=== PATIENT | male | born 1950 | race Caucasian/White ===

== ENCOUNTER 2017-01-28 09:55 | Inpatient (IN) | payer BC, MEDICARE, OTHER ==
[2017-01-28] MEDS ORDERED: NS 0.9% 1000 ML* 1,000 ML IV ONE (10:17)
[2017-01-28] MEDS ORDERED: HYDROmorphone* 1 MG/ML 1 ML SYR IV ONE (10:17)
[2017-01-28] MEDS ORDERED: Ondansetron INJ* 2 MG/ML VIAL IV ONE (10:17)
[2017-01-28 10:41] LABS: Hematocrit 43 % (42-52); Hemoglobin 14.5 g/dl (14.0-18.0); Mean Corpuscular HGB Conc 34 g/dl (31-36); Mean Corpuscular Hemoglobin 35 pg (27-31); Mean Corpuscular Volume 104 fL (80-94); Mean Platelet Volume 7 um3 (7.4-10.4); Red Cell Distribution Width 14 % (10.5-15); White Blood Count 8.2 10^3/ul (3.5-10.8)
[2017-01-28 10:58] LABS: Albumin 4.2 g/dL (3.2-5.2); BUN/Creatinine Ratio 21.3 (8-20); Calcium 8.8 mg/dL (8.6-10.3); EGFR Non-African American 96.4 (>60); Globulin 2.4 g/dL (2-4); Total Bilirubin 0.8 mg/dL (0.2-1.0); Total Protein 6.6 g/dL (6.4-8.9)
--- NOTE | 2017-01-28 11:00 | RAD ---
INDICATION: Left knee injury COMPARISON: None TECHNIQUE: 2 views were obtained. FINDINGS: There is a comminuted and displaced lateral tibial plateau fracture. There is mild valgus deformity. There is a joint effusion with a fat-fluid level. There are postoperative changes about the left ankle. IMPRESSION: DISTRACTED AND COMMINUTED LATERAL TIBIAL PLATEAU FRACTURE WITH LIPOHEMARTHROSIS
[2017-01-28] MEDS ORDERED: Iohexol 350* (CONTRAST) 500 ML MDV IV ONE (11:14)
--- NOTE | 2017-01-28 12:30 | RAD ---
INDICATION: Tibial plateau fracture. Evaluate for popliteal artery injury COMPARISON: Left lower extremity January 28, 2017 TECHNIQUE: Following administration of 100 mL of Omnipaque 350, coronal and axial imaging of the lower extremity was performed from the mid thigh to the mid diaphysis of the tibia. Coronal and sagittal reconstructed images were acquired. 3-D volume rendered images were obtained. FINDINGS: The distal superficial femoral artery, popliteal artery, tibioperoneal trunk, and proximal tibial vessels to the mid leg are widely patent. There are no findings of dissection or aneurysm. The CT angiogram of the visualized portion of lower extremity is normal. There is a comminuted, distracted, and mildly depressed lateral tibial plateau fracture. The dominant fracture fragment is distracted laterally approximately 2 cm. On oblique component of the fracture extends the proximal metadiaphysis along the lateral cortical margin. There is a joint effusion with a fat-fluid level. There are no additional significant findings. IMPRESSION: 1. NORMAL CT ANGIOGRAM. 2. TIBIAL PLATEAU FRACTURE DESCRIBED WITH LIPOHEMARTHROSIS
[2017-01-28] MEDS ORDERED: ceFAZolin 2 GM PREMIX (*) 50 ML IVPB ONE (14:44)
[2017-01-28] MEDS ORDERED: fentaNYL* 50 MCG/ML 2 ML VIAL (100 MCG VIAL) ONE ×3 (15:40→18:39)
[2017-01-28] MEDS ORDERED: Midazolam* 1 MG/ML 2 ML VIAL (2 MG) ONE (15:42)
[2017-01-28] MEDS ORDERED: KETAMINE HCL* 50 MG/ML 10 ML VIAL ONE (16:07)
[2017-01-28] MEDS ORDERED: Lidocaine 2% PF * 5 ML VIAL ONE (16:15)
[2017-01-28] MEDS ORDERED: Ondansetron INJ* 2 MG/ML VIAL ONE (16:42)
[2017-01-28] MEDS ORDERED: Ketorolac INJ* 30 MG/ML 1 ML VIAL ONE (16:42)
[2017-01-28] MEDS ORDERED: DiMENhydriNATE IV* 50 MG/ML VIAL IV PUSH PRN (16:58)
[2017-01-28] MEDS ORDERED: fentaNYL* 50 MCG/ML 2 ML VIAL (100 MCG VIAL) IV PRN (16:58)
[2017-01-28] MEDS ORDERED: HYDROmorphone* 1 MG/ML 1 ML SYR IV PRN (16:58)
[2017-01-28] MEDS ORDERED: Ondansetron INJ* 2 MG/ML VIAL IV PRN (17:48)
[2017-01-28] MEDS ORDERED: diPHENhydraMINE IV* 50 MG/ML 1 ml VIAL (BENADRYL) IV PRN (17:48)
[2017-01-28] MEDS ORDERED: Acetaminophen TAB* 325 MG PO PRN (17:48)
[2017-01-28] MEDS ORDERED: oxyCODONE/Acetamin 5/325 MG* TAB PO PRN (17:48)
[2017-01-28] MEDS ORDERED: Morphine INJ* 2 MG/ML 1 ML SYRINGE IV PRN (17:48)
--- NOTE | 2017-01-28 18:08 | ED ---
Lane Good Angela, scribed for Teo Crowell MD on 01/28/17 at 1038 . Lower Extremity - HPI Summary HPI Summary: This pt is a 66 y/o male presenting to [facility] c/o left leg pain s/p injury today. Pt reports he fell into a ditch while at work, landing on his feet first and injuring his left leg. He endorses left knee swelling and pain. His pain aggravated by ambulation and movement, and alleviated by nothing. Pt denies any other injuries, ankle pain, LOC, headache, back pain, upper extremity pain, fever, chills. - History of Current Complaint Chief Complaint: EDExtremityLower Stated Complaint: LT KNEE INJURY Time Seen by Provider: 01/28/17 10:16 Hx Obtained From: Patient Mechanism Of Injury: Fall From Height Of: - fell feet first into a ditch Onset of Pain: Immediate - s/p fall Pain Intensity: 8 Pain Scale Used: 0-10 Numeric Timing: Constant Location: Is Discrete @ - left knee Aggravating Factor(s): Ambulation, Movement Alleviating Factor(s): Nothing - Allergies/Home Medications Allergies/Adverse Reactions: Allergies Allergy/AdvReac Type Severity Reaction Status Date / Time No Known Allergies Allergy Verified 06/04/16 12:28 Home Medications: Home Medications NK [No Home Medications Reported] 01/28/17 [History Confirmed 01/28/17] PMH/Surg Hx/FS Hx/Imm Hx Endocrine/Hematology History: Denies: Hx Diabetes Cardiovascular History: Denies: Hx Hypertension - Surgical History Surgery Procedure, Year, and Place: Tonsillectomy, adenoidectomy Infectious Disease History: No Infectious Disease History: Reports: Traveled Outside the [place] in Last 30 Days - tang - Family History Known Family History: Positive: Cardiac Disease - [place], Other - Mother - colon cancer - Social History Alcohol Use: Occasionally Substance Use Type: Reports: None Smoking Status (MU): Former Smoker Review of Systems Constitutional: Other - NEGATIVE: LOC Negative: Fever, Chills Negative: Abdominal Pain Positive: Decreased ROM - left knee, Other - POSITIVE: Left knee pain and swelling. NEGATIVE: back pain Negative: Headache All Other Systems Reviewed And Are Negative: Yes Physical Exam Triage Information Reviewed: Yes Vital Signs On Initial Exam: Initial Vitals BP 178/89 01/28/17 10:06 Vital Signs Reviewed: Yes Appearance: Positive: Well-Appearing Skin: Positive: Warm, Skin Color Reflects Adequate Perfusion Head/Face: Positive: Normal Head/Face Inspection Eyes: Positive: Normal ENT: Positive: Normal ENT inspection Neck: Positive: Supple, Nontender Cardiovascular: Positive: RRR Musculoskeletal: Positive: Other - Left knee swelling. Neurological: Positive: Normal Psychiatric: Positive: Normal, Affect/Mood Appropriate - [place] Coma Scale Coma Scale Total: 15 Diagnostics - Vital Signs Vital Signs Temp Pulse Resp BP Pulse Ox 01/28/17 10:08 97.4 F 73 18 178/89 99 01/28/17 10:07 70 99 01/28/17 10:06 178/ - Laboratory Lab Results: Lab Results 01/28/17 01/28/17 Range/Units 10:30 10:30 WBC 8.2 (3.5-10.8) 10^3/ul RBC 4.10 (4.0-5.4) 10^6/ul Hgb 14.5 (14.0-18.0) g/dl Hct 43 (42-52) % MCV 104 H (80-94) fL MCH 35 H (27-31) pg MCHC 34 (31-36) g/dl RDW 14 (10.5-15) % Plt Count 311 (150-450) 10^3/ul MPV 7 L (7.4-10.4) um3 Neut % (Auto) 62.3 (38-83) % Lymph % (Auto) 28.7 (25-47) % [place] % (Auto) 8.0 (1-9) % Eos % (Auto) 0.3 (0-6) % Baso % (Auto) 0.7 (0-2) % Absolute Neuts (auto) 5.1 (1.5-7.7) 10^3/ul Absolute Lymphs (auto) 2.4 (1.0-4.8) 10^3/ul Absolute Monos (auto) 0.7 (0-0.8) 10^3/ul Absolute Eos (auto) 0 (0-0.6) 10^3/ul Absolute Basos (auto) 0.1 (0-0.2) 10^3/ul Absolute Nucleated RBC 0 10^3/ul Nucleated RBC % 0 Sodium 137 (133-145) mmol/L Potassium 4.0 (3.5-5.0) mmol/L Chloride 105 (101-111) mmol/L Carbon Dioxide 23 (22-32) mmol/L Anion Gap 9 (2-11) mmol/L BUN 17 (6-24) mg/dL Creatinine 0.80 (0.67-1.17) mg/dL Est GFR ( Amer) 124.0 (>60) Est GFR (Non-Af Amer) 96.4 (>60) BUN/Creatinine Ratio 21.3 H (8-20) Glucose 113 H (70-100) mg/dL Calcium 8.8 (8.6-10.3) mg/dL Total Bilirubin 0.80 (0.2-1.0) mg/dL AST 21 (13-39) U/L ALT 21 (7-52) U/L Alkaline Phosphatase 78 (34-104) U/L Total Protein 6.6 (6.4-8.9) g/dL Albumin 4.2 (3.2-5.2) g/dL Globulin 2.4 (2-4) g/dL Albumin/Globulin Ratio 1.8 (1-3) Result Diagrams: 01/28/17 10:30 01/28/17 10:30 Lab Statement: Any lab studies that have been ordered have been reviewed, and results considered in the medical decision making process. - Radiology Left lower extremity XR Xray Interpretation: Positive (See Comments) - IMPRESSION: Distracted and comminuted lateral tibial plateau fracture with lipohemarthrosis. ED physician has reviewed this radiology report and agrees. Radiology Interpretation Completed By: Radiologist - CT CTA Lower Extremity bilateral CT Interpretation: Positive (See Comments) - IMPRESSION: 1. Normal CT angiogram. 2. Tibial plateau fracture as described with lipohemarthrosis. ED physician has reviewed this radiology report and agrees. CT Interpretation Completed By: Radiologist Lower Extremity Course/Dx - Course Course Of Treatment: Mr. Scanlon presented after falling into a ditch and injuring his left leg with obvious valgus deformity at the knee. We got his boot off and his DP was only obtainable with doppler. His cap refill was 5-6 seconds. X-ray showed a significantly displaced tibial plateau fracture laterally, an avulsion fracture of the femur medially and no fracture at the ankle. A CTA was obtained and showed patent vessels through the knee. He was taken to the OR by the Orthopedic service. - Diagnoses Provider Diagnoses: Tibial plateau fracture, left Discharge - Discharge Plan Condition: Stable Disposition: ADMITTED TO [facility] The documentation as recorded by the Lane brown Angela accurately reflects the service I personally performed and the decisions made by me, Teo Crowell MD.
--- NOTE | 2017-01-28 18:16 | RAD ---
INDICATION: Left knee closed reduction, left knee trauma COMPARISONS: January 28, 2017 TECHNIQUE: Fluoroscopy was provided for a surgical procedure. Total fluoroscopy time is: 1 minute, 12.6 seconds FINDINGS: Spot images demonstrate internal fixation of the left lower extremity. IMPRESSION: FLUOROSCOPY WAS PROVIDED FOR A SURGICAL PROCEDURE CPT II Codes: 6045F
[2017-01-28] MEDS: Docusate CAP* 100 MG PO SCH (20:33)
[2017-01-28] MEDS: oxyCODONE TAB* 5 MG TAB PO PRN (20:33)
[2017-01-29] MEDS: ceFAZolin 1 GM VIAL(*) 1 GM in NS 0.9% 50 ML* 50 ML IVPB SCH ×3 (00:10→16:49)
[2017-01-29] MEDS: oxyCODONE TAB* 5 MG TAB PO PRN ×3 (00:28→09:02)
[2017-01-29] MEDS: Docusate CAP* 100 MG PO SCH ×2 (08:11→20:12)
[2017-01-29] MEDS: Enoxaparin(*) 40 MG/0.4 ML SYR SUBCUT SCH (08:14)
--- NOTE | 2017-01-29 09:44 | PN ---
Progress Note - Progress Note Date of Service: 01/29/17 SOAP: Subjective: resting comfortably with minimal complaints of pain Objective: Vital Signs Temp Pulse Resp BP Pulse Ox 99.0 F 88 16 155/77 99 01/29/17 07:28 01/29/17 07:28 01/29/17 09:02 01/29/17 07:28 01/29/17 08:00 Laboratory Last Values WBC 8.2 10^3/ul (3.5-10.8) 01/28/17 10:30 RBC 4.10 10^6/ul (4.0-5.4) 01/28/17 10:30 Hgb 14.5 g/dl (14.0-18.0) 01/28/17 10:30 Hct 43 % (42-52) 01/28/17 10:30 MCV 104 fL (80-94) H 01/28/17 10:30 MCH 35 pg (27-31) H 01/28/17 10:30 MCHC 34 g/dl (31-36) 01/28/17 10:30 RDW 14 % (10.5-15) 01/28/17 10:30 Plt Count 311 10^3/ul (150-450) 01/28/17 10:30 MPV 7 um3 (7.4-10.4) L 01/28/17 10:30 Neut % (Auto) 62.3 % (38-83) 01/28/17 10:30 Lymph % (Auto) 28.7 % (25-47) 01/28/17 10:30 [place] % (Auto) 8.0 % (1-9) 01/28/17 10:30 Eos % (Auto) 0.3 % (0-6) 01/28/17 10:30 Baso % (Auto) 0.7 % (0-2) 01/28/17 10:30 Absolute Neuts (auto) 5.1 10^3/ul (1.5-7.7) 01/28/17 10:30 Absolute Lymphs (auto) 2.4 10^3/ul (1.0-4.8) 01/28/17 10:30 Absolute Monos (auto) 0.7 10^3/ul (0-0.8) 01/28/17 10:30 Absolute Eos (auto) 0 10^3/ul (0-0.6) 01/28/17 10:30 Absolute Basos (auto) 0.1 10^3/ul (0-0.2) 01/28/17 10:30 Absolute Nucleated RBC 0 10^3/ul 01/28/17 10:30 Nucleated RBC % 0 01/28/17 10:30 Sodium 137 mmol/L (133-145) 01/28/17 10:30 Potassium 4.0 mmol/L (3.5-5.0) 01/28/17 10:30 Chloride 105 mmol/L (101-111) 01/28/17 10:30 Carbon Dioxide 23 mmol/L (22-32) 01/28/17 10:30 Anion Gap 9 mmol/L (2-11) 01/28/17 10:30 BUN 17 mg/dL (6-24) 01/28/17 10:30 Creatinine 0.80 mg/dL (0.67-1.17) 01/28/17 10:30 Est GFR ( Amer) 124.0 (>60) 01/28/17 10:30 Est GFR (Non-Af Amer) 96.4 (>60) 01/28/17 10:30 BUN/Creatinine Ratio 21.3 (8-20) H 01/28/17 10:30 Glucose 113 mg/dL (70-100) H 01/28/17 10:30 Calcium 8.8 mg/dL (8.6-10.3) 01/28/17 10:30 Total Bilirubin 0.80 mg/dL (0.2-1.0) 01/28/17 10:30 AST 21 U/L (13-39) 01/28/17 10:30 ALT 21 U/L (7-52) 01/28/17 10:30 Alkaline Phosphatase 78 U/L (34-104) 01/28/17 10:30 Total Protein 6.6 g/dL (6.4-8.9) 01/28/17 10:30 Albumin 4.2 g/dL (3.2-5.2) 01/28/17 10:30 Globulin 2.4 g/dL (2-4) 01/28/17 10:30 Albumin/Globulin Ratio 1.8 (1-3) 01/28/17 10:30 incision: c/d/i PE: NVI Assessment: POD#1 S/P ex fix application LLE for tibial plateau fracture Plan: 1) PT/OT- NWB LLE 2) Ancef x 3 doses 3) Lovenox for DVT prophyalxis 4) Home today after third dose of Ancef and OT evaluation <Ela Browning - Last Filed: 01/29/17 09:41> - Progress Note SOAP: Subjective: Patient failed OT eval. Unable to get out of bed without significant pain. So will stay until at least tomorrow. Objective: NAD. Comfortable. LLE: - Pins in place - Construct tight without loosening - NVID - Significant swelling left knee, no wrinkling laterally Assessment: POD 1, HD 2 ex-fix left displaced lateral tibial plateau fracture Plan: - Pain control with PO/IV narcotics - Ex-fix in place - NWB LLE - OOB as wilmer. OT to see again tomorrow - Lovenox 40 mg SQ daily - Ancef doses (up to max of 3) were being given, primarily because of the patient's ankle hardware in the vicinity of distal pins - Discussed with family and patient at length his diagnosis, our plan before, during, and after ORIF surgery and prognosis. They asked excellent questions such as the possibility of treatment with a TKA or the future need for a TKA. - Dispo depends on the patient's comfort getting out of bed with OT - Pin care by nursing - Elevation and icing knee. Amount of swelling will determine timing of ORIF surgery. - I anticipate surgery either February 04 or <Lavelle Guerin - Last Filed: 01/29/17 13:44>
[2017-01-29] MEDS: oxyCODONE/Acetamin 5/325 MG* TAB PO PRN ×3 (12:18→23:11)
--- NOTE | 2017-01-30 03:19 | OP ---
OPERATIVE REPORT: DATE OF OPERATION: 01/28/17 DATE OF : 48 SURGEON: Lavelle Guerin MD MARKETING OPERATIONS MANAGER: CORRINA Waldron A physician document control assistant was required throughout the duration of the procedure for retraction and manip ulation of the body as well as instrumentation. ANESTHESIOLOGIST: Dr. Devante Castro ANESTHESIA: General anesthesia. PRE-OP DIAGNOSIS: Left knee lateral tibial plateau fracture, displaced. POST-OP DIAGNOSIS: Left knee lateral tibial plateau fracture, displaced. OPERATIVE PROCEDURE: External fixation, left knee for lateral tibial plateau fracture, displaced. ANTIBIOTICS: Ancef 2 g IV. IV FLUIDS: 600 cc Crystalloid. COMPLICATIONS: None. ESTIMATED BLOOD LOSS: Minimal. SPECIMEN: None. IMPLANTS: Synthes large external fixator placement; 2 pins in femur, left, 2 pins in left tibia; an d spanning rods, 2 anteromedially and 2 anterolaterally. TOURNIQUET TIME: None. 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 m. on the day of surgery. See history and physical for full details. The patient was seen in the e mergency department. A colleague of levar was on-call and asked me to see the patient. The patient had a Schatzker II displaced lateral tibial plateau fracture with depression. This was evident by C T scan and x-ray. The patient was very uncomfortable in the emergency department. The first plan was for possible ORIF. The 3.5 mm plates for the procedure were not available until the following morning. Due to the patient's already significant level of swelling, soft tissue abou t the left knee, the decision was made to place an external fixator for a provisional management, al low the soft tissue to subside and then eventually, in 1 to 2-1/2 weeks, perform open reduction inte rnal fixation. Of note, the patient had a prior history of left ankle open reduction internal fixation and had some hardware placed in the medial and lateral malleolus, so I wanted to steer clear of that hardware wh ile placing my tibial pins. I also wanted to make sure to place my tibial pins distal enough to shena id being anywhere near the site of future lateral plate for the open reduction internal fixation pro cedure. I discussed with patient and his family, benefits, risks and potential complications of the procedur e. These include bleeding, nerve injury, infection, blood vessel injury, knee arthritis, knee stiff ness, knee pain, need for open reduction internal fixation, knee arthritis, future need for total kn ee arthroplasty. DESCRIPTION OF PROCEDURE: The patient signed surgical consent in preoperative holding. Operative e xtremities marked in preoperative holding. The patient was taken back to the operating room and savita ariella supine on a radiolucent table. General anesthesia was applied. Left lower extremity was examined and noted to have some significant valgus deformity to it. Bone f oam was placed under the left lower extremity and blanket bumps under the left hemipelvis. Nonsteri le U-drape was placed about the proximal most aspect of the left lower extremity near the groin. I did not place a nonsterile tourniquet, but decided that I could place a sterile tourniquet as needed during the procedure. The left lower extremity was prepped with chlorhexidine about the foot and ChloraPrep throughout the rest of the lower extremity. Draping was performed. Surgical time-out was performed. A C-arm was brought in. I made multiple arrieta with a skin pen. I marked 11 cm proximal to the prox imal pole patella and knee extension. This is a comfortable distance to the description of the supr apatellar pouch extending to 8.5 cm proximal. I determined the mid point of the femur and confirmed that with a freer metallic instrument using C-arm. I then incised skin at this point, I spread wit h the hemostat down to bone. I placed a triple sleeve and I drilled through it 3.5 mm drill bit. I confirmed the position of my drill bit with C-arm. I adjusted it once to make it more nicely perpe ndicular to bone. I then placed a pin by hand into the bone. C-arm confirmed that it was bicortica l, 1 thread passed the second cortex. I then used a sleeve guide to place a second more proximal pi n through the femur, using the same technique again. I then directed my attention towards the tibia. I found a zone of the lower leg, proximal to the pl ate and screws at the ankle fixation and distal to where I believed a plate would extend during his upcoming open reduction internal fixation case. Using similar technique to above, I made a longitud inal skin incision, spread to bone, at this time over the anterior part of the anteromedial aspect, side of the tibia. A drill bit of 3.5 meter drill and then placed by hand 2 pins. I then constructed my external fixator. The pins were connected by pin joiners on either side of th e knee. I then created a spanning construct both anteromedial and anterolateral with one long denise o n either end of the pin construct from the tibia and the femur and then a pin-to-pin connector just distal to the knee. I tightened all bolts except for one between the distal construct and its bars. I then used C-arm imaging to evaluate the fracture. There was some mild amount of valgus and displa cement at the fracture site. I then performed some reduction. More specifically this was a small am ount of varus force, but mostly just traction. This appeared to reduce slightly the fracture. There was still some gaping at the fracture site. I tried with my hand and with a mallet to reduce this and with varying amounts of varus and valgus stress, but this would not further reduce. That t ype of improve reduction will require plate and screws and open technique. After obtaining the best reduction available, I obtained final images with the C- arm. I then placed Xeroform around each one of the pin sites. I followed that with a 4 x 4 soaked in Bet adine around each one. Of note, there was 1 additional stab skin incision, just proximal to the oth er 2 about the lower leg. This was placed before I decided to go more distal to avoid the possible overlap with possible future plate site. I closed that stab incision with 1 figure-of-8 stitch usin g nylon 4-0 suture. Next, I placed a small amount of Webril about the proximal lower leg to reduce swelling or minimize future swelling. I then placed an Brad bandage, 6-inch about much of the printing sales representative al fixator frame for cosmetic benefit. There was almost zero bleeding through the procedure, perhaps 1 cc or 2 cc of blood. Hemostasis onc e was obtained on one of the stab incisions with Bovie electrocautery for a moment. The patient was awakened and extubated and brought to the PACU. DISPOSITION: At the conclusion of the procedure, in the PACU, we spoke with both Physical Therapy a nd Occupational Therapy to attempt to get the patient cleared for discharge home. However, the benjamin ent could not be seen at that late hour. We therefore admitted the patient for pain control as well as for functional and occupational therapy prior to discharge home. The patient will be admitted u ntil he is safe for discharge to a rehab facility or home. The patient will then be seen in followu p by me and I will monitor his soft tissue swelling to the site when an open reduction internal fixa tion can be performed. The patient will be anticoagulated with Lovenox 40 mg subcu daily for DVT pr ophylaxis. He will receive narcotics for pain control. Instead of just 1 dose of Ancef perioperati vely, I placed him on Ancef 1 g q.8 hours for up to 24 hours or until he leaves if that is sooner th an 24 hours, just put some added protection given the additional hardware already placed in that lef t lower extremity, specifically about the ankle. [id number]/[facility] #: [id number]
--- NOTE | 2017-01-30 07:32 | PN ---
Progress Note - Progress Note Date of Service: 01/30/17 SOAP: Subjective: resting comfortably, continued complaints of severe left leg pain Objective: Vital Signs Temp Pulse Resp BP Pulse Ox 98.5 F 100 16 129/71 98 01/30/17 03:55 01/30/17 03:55 01/30/17 03:55 01/30/17 03:55 01/30/17 03:55 Laboratory Last Values WBC 8.2 10^3/ul (3.5-10.8) 01/28/17 10:30 RBC 4.10 10^6/ul (4.0-5.4) 01/28/17 10:30 Hgb 14.5 g/dl (14.0-18.0) 01/28/17 10:30 Hct 43 % (42-52) 01/28/17 10:30 MCV 104 fL (80-94) H 01/28/17 10:30 MCH 35 pg (27-31) H 01/28/17 10:30 MCHC 34 g/dl (31-36) 01/28/17 10:30 RDW 14 % (10.5-15) 01/28/17 10:30 Plt Count 311 10^3/ul (150-450) 01/28/17 10:30 MPV 7 um3 (7.4-10.4) L 01/28/17 10:30 Neut % (Auto) 62.3 % (38-83) 01/28/17 10:30 Lymph % (Auto) 28.7 % (25-47) 01/28/17 10:30 [place] % (Auto) 8.0 % (1-9) 01/28/17 10:30 Eos % (Auto) 0.3 % (0-6) 01/28/17 10:30 Baso % (Auto) 0.7 % (0-2) 01/28/17 10:30 Absolute Neuts (auto) 5.1 10^3/ul (1.5-7.7) 01/28/17 10:30 Absolute Lymphs (auto) 2.4 10^3/ul (1.0-4.8) 01/28/17 10:30 Absolute Monos (auto) 0.7 10^3/ul (0-0.8) 01/28/17 10:30 Absolute Eos (auto) 0 10^3/ul (0-0.6) 01/28/17 10:30 Absolute Basos (auto) 0.1 10^3/ul (0-0.2) 01/28/17 10:30 Absolute Nucleated RBC 0 10^3/ul 01/28/17 10:30 Nucleated RBC % 0 01/28/17 10:30 Sodium 137 mmol/L (133-145) 01/28/17 10:30 Potassium 4.0 mmol/L (3.5-5.0) 01/28/17 10:30 Chloride 105 mmol/L (101-111) 01/28/17 10:30 Carbon Dioxide 23 mmol/L (22-32) 01/28/17 10:30 Anion Gap 9 mmol/L (2-11) 01/28/17 10:30 BUN 17 mg/dL (6-24) 01/28/17 10:30 Creatinine 0.80 mg/dL (0.67-1.17) 01/28/17 10:30 Est GFR ( Amer) 124.0 (>60) 01/28/17 10:30 Est GFR (Non-Af Amer) 96.4 (>60) 01/28/17 10:30 BUN/Creatinine Ratio 21.3 (8-20) H 01/28/17 10:30 Glucose 113 mg/dL (70-100) H 01/28/17 10:30 Calcium 8.8 mg/dL (8.6-10.3) 01/28/17 10:30 Total Bilirubin 0.80 mg/dL (0.2-1.0) 01/28/17 10:30 AST 21 U/L (13-39) 01/28/17 10:30 ALT 21 U/L (7-52) 01/28/17 10:30 Alkaline Phosphatase 78 U/L (34-104) 01/28/17 10:30 Total Protein 6.6 g/dL (6.4-8.9) 01/28/17 10:30 Albumin 4.2 g/dL (3.2-5.2) 01/28/17 10:30 Globulin 2.4 g/dL (2-4) 01/28/17 10:30 Albumin/Globulin Ratio 1.8 (1-3) 01/28/17 10:30 incision: c/d PE: NVI Assessment: POD#2 Ex Fix application left lower extremity for a tibial plateau fracture Plan: 1) PT/OT- NWB LLE 2) Lovenox for DVT prophylaxis 3) continue current pain regimen 4) likely home tomorrow
[2017-01-30] MEDS: Docusate CAP* 100 MG PO SCH ×2 (08:54→20:17)
[2017-01-30] MEDS: Enoxaparin(*) 40 MG/0.4 ML SYR SUBCUT SCH (08:54)
[2017-01-30] MEDS: oxyCODONE/Acetamin 5/325 MG* TAB PO PRN ×3 (10:18→21:38)
--- NOTE | 2017-01-31 02:49 | CONS ---
CC: Dr. Guerin; Dr. Harris* CONSULTATION REPORT: DATE OF CONSULT: 01/30/17 REFERRING PHYSICIAN: Dr. Guerin. PRIMARY CARE PROVIDER: None. Used to be Dr. Harris; but, as per the patient, Dr. Harris retired. REASON FOR CONSULT: Preoperative clearance. CHIEF COMPLAINT: Left leg pain. HISTORY OF PRESENT ILLNESS: Femi Scanlon is a 66-year-old male [place] with no significant past medical history, who presented to the hospital originally on after he fell in a ditch and sustained tibial plateau fracture with hemarthrosis. The patient was admitted to the surgical service and Dr. Guerin performed external fixation of the left knee and lateral tibia plateau fracture on 01/28/17. Postoperatively, the patient had been doing okay, but they are plans for another surgery and removal of the external fixator. Dr. Guerin was asked to see the patient in consult for surgical clearance. PAST MEDICAL HISTORY: History of left ankle ORIF several years ago. MEDICATIONS: None. ALLERGIES: No known drug allergies. FAMILY HISTORY: Positive for mother with ovarian cancer and colon cancer, who in her 70s and father with history of prostate cancer, who in his 80s. Brother with history of heart valve replacement. SOCIAL HISTORY: The patient smoked for 10 years total, quit in 1994. He drinks 2 alcoholic beverages in night and it is a hard liquor. He denies any drug use. He lives with his daughter, who would be his surrogate. Her name is Elizabeth Scanlon, phone number [phone]. REVIEW OF SYSTEMS: Please see history of present illness. The patient stated that the pain from the external fixator is "not so bad." He denies any problems with shortness of breath or chest pain. Prior to the surgery, he has had no problems with ambulation and no shortness of breath with exertion or chest pain with exertion. He had been healthy all his life. All the remaining 14 systems were reviewed with the patient and were otherwise negative. Evaluation on the day of admission during his original surgery on 01/28/17, he has had no complications. PHYSICAL EXAM: Blood pressure 135/75, heart rate of 89 and regular, respiratory rate 16, oxygen saturation 98% on room air, and temperature of 98.2. General: This is a pleasant 66-year-old male, who is in no acute distress. Alert, awake, and oriented x3. HEENT: Head: Atraumatic, normocephalic. Eyes: Pupils equal, reactive to light and accommodation. Oropharynx clear. Mucosa moist. Neck: Supple. No JVD, no bruit bilaterally. Cardiovascular: Regular rate and rhythm. No murmur. Respiratory: Clear to auscultation bilaterally. Abdomen: Soft, nontender. Bowel sounds present in all 4 quadrants. Extremities: There is left ankle edema, nonpitting. Pulses are +2 bilaterally. There is no clubbing or cyanosis. Left lower extremity is in external fixator. There is no evidence of skin infection. Neuro Evaluation : Please note that the left leg mobility is markedly limited due to external fixator. Otherwise, the patient has no problems with motor strength bilaterally. Cranial nerves II through XII are grossly intact. Speech is within normal limits. Psychiatric Evaluation: Oriented x2. No evidence of anxiety or depression. Evaluation of the skin, there is no evidence of cellulitis in the place of external fixator. There are no rashes noted. The patient has a supraumbilical lesion, discoloration of the skin noted approximately 1 cm that he stated he has had "all his life." It was apparently biopsied in the past and was negative. DIAGNOSTIC STUDIES/LAB DATA: Showed sodium of 137, potassium 4.0, chloride 105 , carbon dioxide 23, BUN 17, creatinine 0.83. Liver function tests were unremarkable. CBC: White blood cell count of 8.2, hemoglobin of 14.5, hematocrit of 43, and platelets of 311. Portable chest x-ray and EKG are pending at the time of dictation. ASSESSMENT AND PLAN: A 66-year-old previously healthy male, who is status post external fixator placement on the left tibial plateau fracture and now is requested to be evaluated for another surgery and removal of the external fixator. The patient has no history of cardiac issues and no history of breathing issues apart from history of smoking. Never used an inhaler in his life and he has no problems with ambulation prior to his current surgery. It appears that he did very well during the original surgery and he is an acceptable candidate for the anticipated surgery. Once again, the EKG and chest x-ray are pending, but I do not believe it will change significantly my recommendation at this point. Medicine will see the patient on a p.r.n. basis. TIME SPENT: Approximately 62 minutes was spent on consultation of this patient. Thank you very much for allowing me to see your patient in consultation. [id number]/[facility] #: [id number] MANAS
[2017-01-31] MEDS: Docusate CAP* 100 MG PO SCH ×2 (07:44→22:50)
[2017-01-31] MEDS: oxyCODONE/Acetamin 5/325 MG* TAB PO PRN ×3 (07:44→22:49)
[2017-01-31] MEDS: Enoxaparin(*) 40 MG/0.4 ML SYR SUBCUT SCH (07:47)
--- NOTE | 2017-01-31 08:18 | RAD ---
INDICATION: History of smoking. COMPARISON: There are no prior studies available for comparison. TECHNIQUE: A portable view of the chest was obtained. FINDINGS: Cardiac and mediastinal contours appear to be within normal limits. The lungs are clear. No pleural effusion is seen. IMPRESSION: NO EVIDENCE FOR ACUTE DISEASE.
--- NOTE | 2017-01-31 10:37 | PN ---
Progress Note - Progress Note Date of Service: 01/31/17 SOAP: Subjective: []Patient seen OOB in chair. Pain well managed, especially while sedentary. Denies SOB, CP or dizziness. Hoping for rehab bed prior to return in OR in 1-2 weeks. Objective: [] Vital Signs Temp 98.2 F 01/31/17 03:54 Pulse 79 01/31/17 03:54 Resp 16 01/31/17 07:44 BP 137/68 01/31/17 03:54 Pulse Ox 100 01/31/17 03:54 Intake & Output 01/30/17 01/31/17 01/31/17 18:59 06:59 18:59 Intake Total 540 1250 Output Total 725 825 700 Balance -185 425 -700 Intake: Oral 540 1250 Output: Urine 725 825 700 Pin sites wrapped with betadine gauze, benign moderate knee hemarthrosis, no erythema or warmth calf non tender +DF left ankle sensation intact distally foot pink and warm with good cap refill Assessment: []s/p ex fix tibial plateau fx with fx hematoma/hemarthrosis Left LE POD #3 Plan: []Continue transfers NWB LLE daily betadine gauze pin site care await bed offer for short term rehab prior to readmission for definitive ORIF tibial plateau fx follow up with Dr. Guerin this in office
[2017-02-01] MEDS: Enoxaparin(*) 40 MG/0.4 ML SYR SUBCUT SCH (08:35)
[2017-02-01] MEDS: Docusate CAP* 100 MG PO SCH ×2 (08:35→20:15)
[2017-02-01] MEDS ORDERED: Magnesium Hydroxide LIQ* 30 ML UDC PO PRN (09:42)
--- NOTE | 2017-02-01 13:18 | PN ---
Progress Note - Progress Note Date of Service: 02/01/17 SOAP: Subjective: []Patient seen at bedside, unchanged. No new complaints. Awaiting rehab bed availability. Objective: [] Vital Signs Temp 98.7 F 02/01/17 07:52 Pulse 83 02/01/17 07:52 Resp 16 02/01/17 08:35 BP 132/70 02/01/17 07:52 Pulse Ox 97 02/01/17 07:52 Intake & Output 01/31/17 02/01/17 02/01/17 18:59 06:59 18:59 Intake Total 465 700 440 Output Total 1530 850 360 Balance -1065 -150 80 Intake: Oral 465 700 440 Output: Urine 1530 850 360 Other: # Bowel Movements 0 Left LE pin sites are clean and dry, knee is still moderately swollen, no wrinkling, no erythema calf NT and soft + DF ankle sensation intact DP pulse + with doppler, unable to palpate manually good cap refill Assessment: []s/p Ex fix left tibial plateau fx with associated soft tissue swelling and hemarthrosis left knee joint POD #4 Plan: []NWB LLE Lovenox continue betadine pin site care daily ICE to left knee Await rehab bed availability
[2017-02-01] MEDS: oxyCODONE/Acetamin 5/325 MG* TAB PO PRN (20:15)
[2017-02-02 05:54] LABS: Hematocrit 34 % (42-52); Hemoglobin 11.6 g/dl (14.0-18.0); Mean Platelet Volume 7 um3 (7.4-10.4)
[2017-02-02 06:06] LABS: EGFR African American 131.6 (>60); EGFR Non-African American 102.3 (>60)
[2017-02-02] MEDS: Enoxaparin(*) 40 MG/0.4 ML SYR SUBCUT SCH (08:51)
[2017-02-02] MEDS: Docusate CAP* 100 MG PO SCH (08:51)
--- NOTE | 2017-02-02 09:47 | PN ---
Progress Note - Progress Note Date of Service: 02/02/17 SOAP: Subjective: []Patient seen OOB in chair. No new complaints, pain well managed. States Dr. Guerin was in earlier this am and will plan for ORIF next Tuesday. Objective: [] Vital Signs Temp 98.1 F 02/02/17 07:17 Pulse 76 02/02/17 07:17 Resp 18 02/02/17 08:00 BP 128/62 02/02/17 07:17 Pulse Ox 97 02/02/17 08:00 Intake & Output 02/01/17 02/02/17 02/02/17 18:59 06:59 18:59 Intake Total 1080 1450 Output Total 560 1400 600 Balance 520 50 -600 Intake: Oral 1080 1450 Output: Urine 560 1400 600 Other: # Bowel Movements 0 Laboratory Results - last 24 hr 02/02/17 02/02/17 05:25 05:25 Hgb 11.6 L Hct 34 L Plt Count 302 MPV 7 L BUN 12 Creatinine 0.76 Est GFR ( Amer) 131.6 Est GFR (Non-Af Amer) 102.3 Left knee without wrinkling, still moderate hemarthrosis, pin sites benign, calf NT, sensation intact distally Assessment: []s/p Ex fix left tibial plateau fx with associated knee hemarthrosis/ soft tissue swelling POD #5 Plan: []NWB LLE Definitive fracture fixation scheduled for next Tuesday with Dr. Guerin Await swing bed availability
[2017-02-02 11:30] VITALS: BP 136/71
--- NOTE | 2017-02-02 15:07 | DS ---
AMENDED REPORT NOW INCLUDES COSIGNER DESIGNATION DISCHARGE SUMMARY: DATE OF ADMISSION: 01/28/17 DATE OF DISCHARGE: 02/02/17 ATTENDING PHYSICIAN: Dr. Lavelle Guerin * (DICTATED BY CORRINA ARNOLD) ADMISSION DIAGNOSIS: Displaced left lateral tibial plateau fracture. DISCHARGE DIAGNOSIS: Left displaced lateral tibial plateau fracture, associated left knee hemarthrosis. SURGERY PERFORMED: External fixation; left lower extremity for tibial plateau fracture, displaced. 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 He sustained a significant lateral tibial plateau fracture with depression and displacement. Due to the amount of significant swelling and hemarthrosis, it was felt he will best be served by external fixation, provisionally, to allow for soft tissue swelling to subside and then plan for definitive open reduction and internal fixation of the tibial plateau, when his swelling is found to be much improved. The patient had difficulty with his activities of daily living and was unable to be discharged home as initially planned. It was felt that he would need additional rehabilitation prior to his scheduled surgical procedure. It was felt that he would be an ideal candidate for swing bed status and was accepted here at [facility] and [place]. The patient chose to stay here at [facility] under a swing bed status until scheduled for his surgery next 02/09/[address] Guerin. CONDITION ON DISCHARGE: The patient's pin sites are clean and dry. He has had Betadine soaked gauze placed daily on the pin sites. He still has a moderate hemarthrosis of the left knee. There is no erythema or significant warmth. His neurovascular status is grossly intact distally. His vital signs are stable. Temperature 98.1, pulse 76, respiratory rate 16, O2 sat 97 on room air, blood pressure 128/62. PLAN: Discharged to swing bed status here at [facility]. He will continue with Lovenox 40 mg subcu as ordered during his inpatient stay. This will be discontinued the evening before his surgery, either this Tuesday02/04/17 or next Tuesday02/09/17. Continue to ice the left knee multiple times per day to help reduce swelling. CORRINA ARNOLD [id number]/[facility] #: [id number] MANAS
--- NOTE | 2017-02-04 07:52 | PN ---
Progress Note - Progress Note Date of Service: 02/04/17 SOAP: Subjective: Comfortable. Objective: LLE: - pins intact, no surrounding erythema - only very minimal wrinkling - NVID Selected Entries 02/02/17 11:30 Temperature 98.7 F Pulse Rate 77 Respiratory 16 Rate Blood Pressure 136/71 (mmHg) O2 Sat by Pulse 100 Oximetry Assessment: POD ex-fix L tibial plateau fracture Plan: - to OR 02/09/17 for ORIF - [place] - NWB LLE
== END 2017-02-02 11:20 | disposition swing bed (61) | DRG 313 ==
LOC: ED 09:55 → OR 14:51 → SSU 17:50
PROVIDERS: ADMIT Orthopaedic Surgery; ATTEND Orthopaedic Surgery
PROC: 0QSH35Z Reposition Left Tibia with External Fixation Device, Percutaneous Approach (ICD-10-PCS; principal; 2017-01-28 15:00)
DX: S82.142A Displaced bicondylar fracture of left tibia, initial encounter for closed fracture (principal); M25.062 Hemarthrosis, left knee; W17.89XA Other fall from one level to another, initial encounter; M21.062 Valgus deformity, not elsewhere classified, left knee; Y92.9 Unspecified place or not applicable; Z82.49 Family history of ischemic heart disease and other diseases of the circulatory system; Z80.0 Family history of malignant neoplasm of digestive organs; Z87.891 Personal history of nicotine dependence; Z80.41 Family history of malignant neoplasm of ovary; Z80.42 Family history of malignant neoplasm of prostate
CPT/HCPCS: 36415; 71010; 73706; 76001; 80053; 82565; 84520; 85014; 85018; 85025; 85049; 93005; A9270-GY; C1713; C1776; J0690; J1170; J1650; J1885; J2250; J2405; J3010; Q9967

== ENCOUNTER 2017-02-02 11:20 | Inpatient (IN) | payer OTHER ==
[2017-02-02] MEDS ORDERED: Acetaminophen TAB* 325 MG PO PRN (11:52)
[2017-02-02] MEDS ORDERED: diPHENhydraMINE PO* 25 MG PO PRN (12:01)
[2017-02-02] MEDS ORDERED: Ondansetron INJ* 2 MG/ML VIAL IV PRN (12:01)
[2017-02-02] MEDS ORDERED: Magnesium Hydroxide LIQ* 30 ML UDC PO PRN (12:03)
[2017-02-02] MEDS ORDERED: oxyCODONE/Acetamin 5/325 MG* TAB PO PRN (12:04)
[2017-02-02] MEDS: Enoxaparin(*) 40 MG/0.4 ML SYR SUBCUT SCH (13:08)
[2017-02-02] MEDS: oxyCODONE/Acetamin 5/325 MG* TAB PO PRN ×2 (13:38→19:10)
[2017-02-03] MEDS: oxyCODONE/Acetamin 5/325 MG* TAB PO PRN ×2 (02:11→22:18)
[2017-02-03] MEDS: Enoxaparin(*) 40 MG/0.4 ML SYR SUBCUT SCH (12:23)
--- NOTE | 2017-02-03 18:05 | PN ---
Progress Note - Progress Note Date of Service: 02/03/17 SOAP: Subjective: Patient comfortable. Objective: NAD LLE: - pins in place, dressing in place - swelling unchanged, smallest of wrinkles - NVID Assessment: POD 6 ex-fix L tibial plateau Plan: - Lovenox 40 mg SQ - Surgery when swelling reduced, tomorrow or next 02/09/17 - Continue elevation and icing - NPO after midnight and hold Lovenox doses starting now in the (less likely, but possible) case that patient goes to OR tomorrow
[2017-02-04] MEDS: oxyCODONE/Acetamin 5/325 MG* TAB PO PRN ×2 (05:48→21:10)
--- NOTE | 2017-02-04 11:17 | PN ---
Subjective Date of Service: 02/04/17 Interval History: Pt examined today at the bedside. States that he is feeling well. States the pain in the LLE is controlled with percocet. Denies chest pain and denies sob. ROS-denies fever, denies chills, denies chest pain, denies sob, denies abdominal pain, denies nausea, denies vomiting, denies lightheadedness, denies loc, review of 11 systems completed all others negative, Objective Active Medications: Acetaminophen (Tylenol Tab*) 650 mg PO Q6H PRN PRN Reason: mild pain or fever Diphenhydramine HCl (Benadryl Po*) 25 mg PO Q6H PRN PRN Reason: INSOMNIA Last Admin: 02/03/17 00:04 Dose: 25 mg Magnesium Hydroxide (Milk Of Magncarly Liq*) 30 ml PO Q6H PRN PRN Reason: CONSTIPATION Ondansetron HCl (Zofran Inj*) 4 mg IV Q6H PRN PRN Reason: NAUSEA Oxycodone/Acetaminophen (Percocet 5/325 Tab*) 1 tab PO Q3H PRN PRN Reason: PAIN - MODERATE Last Admin: 02/04/17 05:48 Dose: 1 tab Oxycodone/Acetaminophen (Percocet 5/325 Tab*) 2 tab PO Q3H PRN PRN Reason: PAIN - MODERATE Vital Signs 02/03/17 02/03/17 02/03/17 11:24 15:24 19:24 Temperature 97.9 F 99.1 F 99.1 F Pulse Rate 84 93 98 Respiratory 16 16 16 Rate Blood Pressure 128/66 131/64 143/65 (mmHg) O2 Sat by Pulse 100 99 98 Oximetry 02/03/17 02/03/17 02/04/17 19:58 22:18 00:18 Temperature Pulse Rate Respiratory 16 16 16 Rate Blood Pressure (mmHg) O2 Sat by Pulse Oximetry 02/04/17 02/04/17 02/04/17 05:48 07:24 07:45 Temperature 98.5 F Pulse Rate 75 Respiratory 16 16 18 Rate Blood Pressure 139/64 (mmHg) O2 Sat by Pulse 96 Oximetry 02/04/17 08:00 Temperature Pulse Rate Respiratory 18 Rate Blood Pressure (mmHg) O2 Sat by Pulse Oximetry Oxygen Devices in Use Now: None Appearance: 66 y/o male patient NAD, Eyes: No Scleral Icterus, PERRLA Ears/Nose/Mouth/Throat: NL Teeth, Lips, Gums Neck: NL Appearance and Movements; NL JVP Respiratory: Symmetrical Chest Expansion and Respiratory Effort, Clear to Auscultation Cardiovascular: NL Sounds; No Murmurs; No JVD Abdominal: NL Sounds; No Tenderness; No Distention Extremities: - - ex-fix to LLE, pin sites CDI no errythema noted, distal csm checks intact, Skin: No Rash or Ulcers Neurological: Alert and Oriented x 3 Lines/Tubes/Other Access: Clean, Dry and Intact Peripheral IV Assess/Plan/Problems-Billing Assessment: 66 y/o male patient with no significant PMH presents to [facility] with tib plateau fx , - Patient Problems (1) Tibial plateau fracture, left Current Visit: Yes Status: Acute Priority: High Comment: s/p ex fix awaiting OR for removal per ortho (2) Pre-op evaluation Current Visit: Yes Status: Acute Priority: High Comment: CXR and EKG review patient medically optimized for procedure. RCRI score 0 (3) FEN Current Visit: Yes Status: Acute Priority: High Comment: Regular Diet (4) Full code status Current Visit: Yes Status: Acute Priority: High (5) DVT prophylaxis Current Visit: Yes Status: Acute Priority: High Comment: Per ortho Status and Disposition: s/p Exfix awaiting removal Dispo per ortho medicine will follow on a PRN basis. Thank you for the consult
[2017-02-04] MEDS: Enoxaparin(*) 40 MG/0.4 ML SYR SUBCUT SCH (12:31)
[2017-02-05] MEDS: Enoxaparin(*) 40 MG/0.4 ML SYR SUBCUT SCH (11:38)
[2017-02-05] MEDS: oxyCODONE/Acetamin 5/325 MG* TAB PO PRN (21:28)
[2017-02-06] MEDS: Enoxaparin(*) 40 MG/0.4 ML SYR SUBCUT SCH (11:53)
[2017-02-06] MEDS: oxyCODONE/Acetamin 5/325 MG* TAB PO PRN (21:08)
--- NOTE | 2017-02-07 09:00 | PN ---
Progress Note - Progress Note Date of Service: 02/07/17 SOAP: Subjective: patient resting comfortably with no complaints of pain Objective: Vital Signs Temp Pulse Resp BP Pulse Ox 98.4 F 86 16 129/66 97 02/06/17 19:50 02/06/17 19:50 02/06/17 23:08 02/06/17 19:50 02/06/17 19:50 incision: proximal pin sites with mild serosangious drainage. PE:NVI Assessment: S/P ex-fix application left lower extremity Plan: 1) start Ancef 1gm q 8 hours 2) continue daily dressing changes 3) NWB E
[2017-02-07] MEDS: ceFAZolin 1 GM VIAL(*) 1 GM in NS 0.9% 50 ML* 50 ML IVPB SCH ×2 (10:24→17:12)
[2017-02-07] MEDS: Enoxaparin(*) 40 MG/0.4 ML SYR SUBCUT SCH (13:23)
[2017-02-07] MEDS: oxyCODONE/Acetamin 5/325 MG* TAB PO PRN (20:59)
[2017-02-08] MEDS: ceFAZolin 1 GM VIAL(*) 1 GM in NS 0.9% 50 ML* 50 ML IVPB SCH ×3 (01:08→17:08)
--- NOTE | 2017-02-08 06:55 | PN ---
Progress Note - Progress Note Date of Service: 02/08/17 SOAP: Subjective: Doing well. No fevers, sweats, chills. Ancef started yesterday per my request when told by PA that proximal pins had some drainage and skin erythema, but were not loose. Objective: NAD LLE: - pins intact, not loose to manipulation - skin trace erythema about edge - proximal-most pin has some murky tiny amount of fluid about it - NVID - swelling decreased significantly about future incision site Assessment: POD 11 ex-fix L tibial plateau Plan: - NPO p midnight - to OR tomorrow for ORIF L tibial plateau and removal of ex-fix - Hold Lovenox dose scheduled for noon today - Continue Ancef for possible pin site infections - Ice, elevate
[2017-02-08] MEDS ORDERED: Buffered Lidocaine 0.9% SYRIN* 5 ML/SYR SYRINGE INTRADERM ONE (12:32)
[2017-02-08] MEDS: oxyCODONE/Acetamin 5/325 MG* TAB PO PRN (21:43)
[2017-02-09] MEDS: ceFAZolin 1 GM VIAL(*) 1 GM in NS 0.9% 50 ML* 50 ML IVPB SCH (01:09)
[2017-02-09] MEDS ORDERED: Famotidine IV* 10 MG/ML 2 ML (20 mg) IV ONE (06:00)
[2017-02-09] MEDS ORDERED: Dexamethasone IV* 4 MG/ML 1 ML (4 MG) IV SLOW PU ONE (06:00)
[2017-02-09] MEDS ORDERED: Dexamethasone IV* 4 MG/ML 1 ML (4 MG) ONE (06:39)
[2017-02-09] MEDS ORDERED: Famotidine IV* 10 MG/ML 2 ML (20 mg) ONE (06:39)
[2017-02-09] MEDS ORDERED: Propofol* 10 MG/ML 20 ML BTL IV PUSH ONE (07:04)
[2017-02-09] MEDS ORDERED: Lidocaine 2% PF * 5 ML VIAL ONE (07:04)
[2017-02-09] MEDS ORDERED: fentaNYL* 50 MCG/ML 5 ML VIAL (250 MCG VIAL) ONE (07:04)
[2017-02-09] MEDS ORDERED: Midazolam* 1 MG/ML 2 ML VIAL (2 MG) ONE (07:04)
[2017-02-09] MEDS ORDERED: ceFAZolin 2 GM PREMIX (*) 50 ML IVPB ONE (07:24)
[2017-02-09] MEDS ORDERED: EPHEDrine (Pressors)* 50 MG/ML VIAL ONE (07:54)
[2017-02-09] MEDS ORDERED: Ketorolac INJ* 30 MG/ML 1 ML VIAL ONE (08:04)
[2017-02-09] MEDS ORDERED: Lidocaine 1.5% EPI 1:200,000* 30 ML SDV ONE (08:28)
[2017-02-09] MEDS ORDERED: fentaNYL* 50 MCG/ML 2 ML VIAL (100 MCG VIAL) ONE ×6 (08:53→13:59)
[2017-02-09] MEDS ORDERED: Labetalol IV* 5 MG/ML 20 ML VIAL ONE (09:09)
[2017-02-09] MEDS ORDERED: Morphine INJ* 2 MG/ML 1 ML SYRINGE IV PRN (09:23)
[2017-02-09] MEDS ORDERED: oxyCODONE/Acetamin 5/325 MG* TAB PO PRN (09:23)
[2017-02-09] MEDS ORDERED: PROCHLORPERAZINE INJ 5 MG/ML 2 ML VIAL IV PRN (09:23)
[2017-02-09] MEDS ORDERED: HYDROcodone/ACETAMIN 5-325 MG* 1 TAB PO PRN (09:23)
[2017-02-09] MEDS ORDERED: Ondansetron INJ* 2 MG/ML VIAL ONE (11:20)
[2017-02-09] MEDS ORDERED: KETAMINE HCL* 50 MG/ML 10 ML VIAL ONE (12:41)
[2017-02-09] MEDS: fentaNYL* 50 MCG/ML 2 ML VIAL (100 MCG VIAL) IV PRN ×2 (14:02→14:42)
[2017-02-09] MEDS ORDERED: oxyCODONE/Acetamin 5/325 MG* TAB ONE (14:26)
[2017-02-09 15:39] VITALS: BP 149/80
== END 2017-02-09 07:30 | disposition short-term general hospital (02) | DRG 342 ==
LOC: SSU 11:20
PROVIDERS: ADMIT Physician Assistant; ATTEND Orthopaedic Surgery
DX: S82.142A Displaced bicondylar fracture of left tibia, initial encounter for closed fracture (principal); Z87.891 Personal history of nicotine dependence; W10.2XXA Fall (on)(from) incline, initial encounter; Y92.89 Other specified places as the place of occurrence of the external cause
CPT/HCPCS: A9270-GY; J0690; J1100; J1650; J1885; J2250; J2405; J2704; J3010

== ENCOUNTER 2017-02-09 07:30 | Inpatient (IN) | payer OTHER ==
--- NOTE | 2017-02-09 13:04 | RAD ---
CPT II Codes: 6045F INDICATION: Lateral tibial plateau fracture TECHNIQUE: Intraoperative fluoroscopy was provided during plate and screw ORIF of left lateral tibial plateau fracture. FINDINGS: 24 spot films depict plate and screw reduction and fixation of a fracture left lateral tibial plateau. Fluoroscopy time: 124 seconds IMPRESSION: As above.
[2017-02-09] MEDS ORDERED: Bisacodyl SUPP* 10 MG SUPP PR PRN (13:44)
[2017-02-09] MEDS ORDERED: oxyCODONE/Acetamin 5/325 MG* TAB PO PRN (13:44)
[2017-02-09] MEDS ORDERED: diPHENhydraMINE IV* 50 MG/ML 1 ml VIAL (BENADRYL) IV PRN (13:44)
[2017-02-09] MEDS: Morphine INJ* 2 MG/ML 1 ML SYRINGE IV PRN ×2 (15:37→16:27)
[2017-02-09] MEDS: oxyCODONE TAB* 5 MG TAB PO PRN ×2 (15:38→20:37)
[2017-02-09] MEDS: ceFAZolin 1 GM VIAL(*) 1 GM in NS 0.9% 50 ML* 50 ML IVPB SCH ×2 (16:23→23:49)
[2017-02-09] MEDS: oxyCODONE/Acetamin 5/325 MG* TAB PO PRN (23:48)
[2017-02-10] MEDS: oxyCODONE TAB* 5 MG TAB PO PRN (03:30)
--- NOTE | 2017-02-10 06:13 | OP ---
DATE OF OPERATION: 02/09/17 - ROOM #340 DATE OF : 48 SURGEON: Lavelle Guerin MD QUALITY CONTROL AUDITOR: CORRINA Waldron. A physician assistant professor of music was required through the length of the procedure for positioning, retraction, manipulation, instrumentation, and help with closure. ANESTHESIOLOGIST: Salma Gale MD ANESTHESIA: General anesthesia, local anesthesia, approximately 5 cc of 1.5% lidocaine with epinephrine. PRE-OP DIAGNOSES: 1. Left tibial plateau fracture, lateral, displaced. 2. Status post external fixator placement and closed reduction of lateral tibial plateau fracture on 01/28/17. POST-OP DIAGNOSES: 1. Left tibial plateau fracture, lateral, displaced. 2. Status post external fixator placement and closed reduction of lateral tibial plateau fracture on 01/28/17. 3. Left knee lateral meniscus tear, bucket handle, displaced. 4. Left partial, low-grade partial width patellar tendon tear (surgically created for operation's exposure & ORIF work) OPERATIVE PROCEDURE: 1. Open reduction internal fixation, left tibial plateau fracture, lateral, displaced. 2. Removal of external fixator, left lower extremity, spanning the knee. 3. Open meniscus repair, left knee lateral meniscus. 4. Open left patellar tendon repair, partial width. INDICATIONS: The patient is a 66-year-old man, a former smoker, who fell into a ditch at work on 01/28/17, 12 days prior to this procedure. The patient was seen by me in the emergency department on the day of injury. The patient had a significant swelling about the left knee and the lower leg and the earliest availability of instrumentation in the operating room and the patient's swelling dictated that the patient could not be treated with an immediate open reduction internal fixation. Therefore, on the day of injury, I placed an external fixator spanning the patient's left knee. I applied varus stress and traction to try to improve the reduction of the displaced lateral tibial plateau fracture. Postoperatively, the patient was treated with Lovenox for anticoagulation, narcotics for pain control. He was made nonweightbearing in left lower extremity. Initially, the plan was for the patient to go home. However, due to functional limitations, the patient was discharged not to home, but to a swing bed in the hospital. Prior to this procedure, the patient's swelling had reduced significantly about the planned incision site with significant wrinkling of the skin possible. Two days prior to the surgery today, the patient was noted to have some drainage out of the proximal pin sites. I requested a physician assistant professor of music on my service to start Ancef 1 g IV q.8 hours and continue the pin site care that I had had applied by nursing with a once daily cleaning of the pin sites with 50%-50% concentration of hydrogen peroxide and normal saline followed by a Betadine- soaked gauze wrap around the pin site. When I saw the patient and examined him yesterday and then this morning, there was no clear infection about the pin sites, proximal and distal. The patient had some fibrous tissue present, but no significant discharge and no significant tenderness or erythema about the pin site. The pins were not loose. Even so, I assumed the worse that there could feasibly be an infection over and above some colonization in those pin tracts. The patient and I have discussed the surgery multiple times in his hospital room. We have discussed the benefits, risks, and potential complications. Risks and potential complications involved bleeding, infection, nerve or blood vessel injury, compartment syndrome, knee arthritis, knee pain, instrumentation failure, requirement of future total knee arthroplasty, stiff knee, blood clot. The patient's family, actually the first time I met them, were excellent questioners, and the date of the original surgery, had assessed essentially the benefits, risks, and potential complications of surgery even at that point. ANTIBIOTICS: Ancef 2 g IV just prior to skin incision. Ancef 2 g IV 4 hours after initial dosing of antibiotics. IV FLUIDS: Lactated Ringer's 700 cc IV. COMPLICATIONS: None. TOURNIQUET TIME: 103 minutes at 300 mmHg. URINE OUTPUT: 600 cc. ESTIMATED BLOOD LOSS: Approximately 200 cc. SPECIMEN: None. IMPLANTS: Synthes, 3.5 mm variable angle (polyaxial) locking lateral tibial plateau plate, 10 holes. Non- locking and locking 3.5-mm screws, fully threaded and one partially threaded. Mitek Gryphon double-loaded suture anchor x1. Multiple FiberWire sutures, stitches; #2 FiberWire for meniscus repair. 20cc ( 4 x 5cc) cancellous bone chips. DBX bone putty 5cc (2 x 2.5cc syringes). DESCRIPTION OF PROCEDURE: Preoperative written consent was obtained. Operative extremity was marked in preoperative holding. The patient was taken back to the operating room, placed supine on operating room table. A Stewart was placed. General anesthesia was applied, the patient was intubated. A tourniquet was placed about the left proximal thigh, but not yet inflated. I then had nursing prep the left lower extremity. I had them first prep the external fixator itself, with a very thorough Betadine sponging of all the instruments in every crevice. After this had been performed once, I then had an additional prep of the entire left lower extremity from foot to proximal thigh and the external fixator components themselves once again. The left lower extremity was draped. Surgical time-out was performed. It should be noted that prior to the prep and drape, the bars about the anterolateral aspect of the external fixator were removed. This was because they might be in the way of imaging and surgical work. The anteromedial bar remained intact. After surgical time-out, a skin incision was marked with a pen, a curved incision running just anterior to the lateral epicondyle moving distally, over Gerdy's tubercle to approximately 1 cm lateral to the anterior tibial crest. The tourniquet was inflated after the lower extremity was elevated, an Esmarch was placed around the part of the left lower extremity, being careful not to touch the external fixator with the Esmarch or any part of my gloves or body. It should be mentioned that we at all times tried to avoid contact with the external fixator. Despite it being prepped twice, we assume the worse that it might be contaminated. Skin incision was made. I changed knives and extended that skin incision through the subcutaneous tissue. I noted the fascial layer including the anterior compartment fascia and iliotibial band. I extended the skin incision and then the subcutaneous incision both proximally and distally. The proximal extent of the incision was at least 3 cm proximal to the joint line. More distally, I was well past the insertion of the patellar tendon. Hemostasis was easily obtained with sponge and Bovie electrocautery in 1 or 2 spots. I then used a deep knife to cut the iliotibial band in line with its fibers and its midpoint anterior to posterior, down to and including Gerdy's tubercle. My incision then moved more anterior, more distally to 1 cm lateral to the anterior tibial crest, mirroring the skin incision. I made my fascial incision 1 cm lateral the anterior tibial crest to allow easy closure at the end of the case. After going through that fascia distally, I undercut the fascia more centrally or medially such that I was able to sweep all of the lateral compartment or anterior compartment musculature off the tibial shaft. I used a deep knife and a periosteal elevator to sweep all anterior compartment musculature off the tibial shaft and lateral tibial plateau. Laminar training project manager was placed into the fracture site after the fracture site had been identified with a Tariq and periosteal elevator. It was easily identified and booked open a bit. It was noted that the some lateral fibers of the patellar tendon were inserting the displaced fragments of the lateral tibial plateau. These were released with sharp dissection directly off a bone. Releasing this lateral aspect of the patellar tendon insertion allowed us a greatly improved visualization and greatly improved mobility of the fracture site. Looking into the fracture site, there was a large chondral fragment that was greatly displaced, approximately 2 to 3 cm. It was also slipped 90 degrees such that the chondral surface itself was exactly vertical. It was not clear at first what orientation that chondral fragment was meant to have. To improve our visualization, we next performed a submeniscal arthrotomy. Using a deep blade, I made a transverse incision, just proximal to the lateral tibial plateau anterolaterally. This would enable us to visualize the fracture more anterior and the entirety of the lateral compartment hopefully. After the arthrotomy had been made, I placed 2 stitches in the meniscus and capsule, lateral to pull superior on the meniscus and enable visualization into the lateral compartment. Looking at the undersurface or deep surface of the capsule , there was clearly some meniscus present; however, it seemed a little narrow of a peripheral rim. Looking into the lateral compartment, there was a large fragment of soft tissue about the intercondylar notch. At first, I was not sure whether this was cruciate ligament or something else. I improved my visibility by extending my subcapsular arthrotomy more anteriorly. I manipulated that fragment and then it became clear that it was a bucket handle tear of the lateral meniscus, with significant portion, approximately 75% of the width from central to peripheral of that lateral meniscus. Therefore, I placed several stitches with number #2 FiberWire into that meniscus to allow for superior retraction of the meniscus and improve visualization of lateral compartment. At this point, I had incredible visualization of the main fracture line. I was able to book open the fracture site really well with a laminar training project manager. I could see the chondral surface throughout the lateral compartment thanks to my submeniscal arthrotomy. The next challenge was to determine whereof to lay my depressed fragments of articular cartilage. Preoperative CT had indicated that there was a central depression fragment of the lateral tibial plateau. Looking into my fracture site, booked open, the lateral fragment was essentially a straight line from anterior to posterior. The tibial plateau present on the other side of the fracture line, central or medial, was slightly more difficult to visualize as it was essentially adjacent to the intercondylar notch. There were several components of cartilage that appeared loose in that location as well. One, I eventually removed, small piece of articular cartilage. It was not clear in that location where the fragment that had been depressed would carter in. I first tried to prop up that depressed fragment, but its proper orientation was not clear and it did not elevate into a specific location. It had been depressed at least 3 cm and the orientation had been totally changed around at least 90 degrees as it was found purely vertical. I tried placing that large chondral fragment in a variety of positions and then closing the fracture and obtaining imaging. It never seemed to carter in nicely and in fact diastase the fracture site. I then studying the uneven edges of the lateral fracture fragment noted where it might carter in. I reduced that chondral fragment, which was approximately 2 x 3 cm, to the lateral fragment. I then fixed that in place with 2 K-wires. Just to make clear, these K-wires fixed the lateral fragment to the loose chondral fragment with subchondral bone that had been depressed with the initial injury. I then reduced the fracture fragment. I made sure it keyed in distally. Studying my C-arm images at AP, oblique, and lateral found that my reduction was excellent. I was confident that I placed the chondral and subchondral fragments in the correct position and I decided to proceed forward. I mixed cancellous bone chips with DBX putty for a bone graft. I used rongeurs and the back handle of a Tariq to make smaller the cancellous bone chips and mixed them with a DBX putty to create a paste. I applied this into the fracture site that had been booked open. I next reduced the fracture. The fracture keyed in especially nicely distally, so I placed a K-wire across that fracture site distally to keep that keyed in. I next placed a pelvic reduction clamp from the lateral tibial plateau to the medial tibial plateau. I placed the medial prong of the clamp without making a skin incision several times and then finally to obtain a better reduction made a skin incision, used spreading dissection down to bone and placed a tong medially. I obtained reduction that I approved of. I then placed 2 K-wires across the entire plateau from lateral to medial to maintain my reduction. I removed the pelvic reduction clamp. I next after initially trying to demo plates with these K-wires in place, I next advanced these pins so that they were not proud laterally and instead they were proud off the knee medially. I demo'd two types of Synthes lateral tibial plateau plates, one earlier generation with one proximal row and non- polyaxial screws and one, a newer generation plate with two proximal rows and polyaxial screw capability. The latter, newer plate, fit better along the lateral tibial plateau and therefore I chose it. I placed plate on bone. I placed a cancellous screw in the oval oblong hole after having pulled my distal pin to allow correct plate placement. The plate was brought to bone nicely. Prior to tightening the plate further to the bone, I next made sure to address the meniscus repair so that I could bring the suture through the plate before tightening the plate further to bone. I next addressed my meniscus tear and my submeniscal arthrotomy. I first addressed the meniscus tear. I placed 4 horizontal and vertical mattress stitches connecting the displaced fragment of meniscus, bucket handle tear, to the thin rim of meniscus and the capsule just superficial to it. I tied those knots. I next placed 1 suture from each of those stitches as well as 1 suture that had been placed through the capsule and meniscal rim through the proximal holes in the tibial plateau plate. I did not tie knots at this point. I then filled the plate in with some screws. I placed a partially threaded 3.5- mm cortical screw proximally in the second hole from anterior to posterior of the proximal most row. This sucked the plate down nicely to bones as it was a non- locking screw. I placed several non-locking screws in the distal most holes in the plate. I took x-ray images to confirm excellent placement of hardware and excellent reduction of the fracture. I then filled in additional holes in the plate proximal and distal with locking fully threaded screws. I ultimately filled both proximal rows in the plate with screws and placed at least 3 screws distal to the fracture line through the plate. AP, oblique, and lateral views showed excellent placement of hardware and excellent reduction of bone. After having fully reduced the plate and placed all screws, I then tied the sutures from the meniscocapsular tissue that had been placed through the plate to complete my meniscocapsular repair. I next addressed the lateral partial with a patellar tendon tear that had been created to improve visualization of the fracture site. I placed a Mitek Gryphon suture anchor, double loaded into the lateral footprints of the patellar tendon. I did this after debriding that footprint with a Tariq and curette. I placed 2 horizontal mattress stitches in the patellar tendon distal fibers laterally. I next obtained a ANSON drain, cut it short, placed a part of that drain in the anterior compartment between muscle and bone. This was done after significant irrigation had been performed. We had also changed gloves multiple times in this case due to the length of the procedure. We next closed the anterior compartment with a figure-of-8 stitches using Vicryl 0 suture. I likewise closed the iliotibial band with the same type of suture and stitch. The ANSON drain had been brought out the skin more proximally. Irrigation. A closure of the subcutaneous tissue with buried simple stitches using Vicryl 2-0 suture. Closure of the skin with kendall. The skin was cleaned with normal saline and hydrogen peroxide mixture and Xeroform was placed over the skin incisions followed by 4x4's, ABDs, and a sterile Webril. I then placed Brad bandages over this wound. Only after the Brad bandages had been applied over a surgical incision and dressing, did I dress the external fixator. We next removed the external fixator. All components were removed. I lightly debrided the holes in the skin from each of the 4 pins with a Tariq to improve healing. We cleaned those sites with a normal saline, hydrogen peroxide mix and then placed a dry sterile dressings, 4x4's, followed by ABDs, and separate Brad bandages. The patient was awakened, extubated and brought to the PACU. In the PACU, his Stewart was removed. DISPOSITION: The patient will be admitted postoperatively. He will start Lovenox 40 mg subcu daily, which he will take for 4 weeks, on postoperative day #1. His pain will be controlled with narcotics, oral and IV. He will be nonweightbearing with physical therapy, but we will start range of motion, on postoperative day #2 in his knee brace. We will take off his dressing and remove his ANSON drain on postoperative day #2 in the morning, first thing right before we start him moving with physical therapy range of motion work. Hopefully, the patient will be discharged home on postoperative day #2 if his pain is controlled and he is functionally able to go home. [id number]/[facility] #: [id number] MANAS
[2017-02-10] MEDS: oxyCODONE/Acetamin 5/325 MG* TAB PO PRN ×4 (06:35→20:14)
[2017-02-10 06:52] LABS: Hematocrit 29 % (42-52)
[2017-02-10 07:09] LABS: BUN/Creatinine Ratio 14.7 (8-20); EGFR African American 133.6 (>60); EGFR Non-African American 103.9 (>60); Potassium 3.9 mmol/L (3.5-5.0)
[2017-02-10] MEDS: ceFAZolin 1 GM VIAL(*) 1 GM in NS 0.9% 50 ML* 50 ML IVPB SCH ×3 (08:59→23:54)
--- NOTE | 2017-02-10 09:00 | PN ---
Progress Note - Progress Note Date of Service: 02/10/17 SOAP: Subjective: []Patient seen at bedside, reports moderate left knee pain. Denies SOB, CP or dizziness. Hoping that he will be able to go home tomorrow. Objective: [] Vital Signs Temp 98.9 F 02/10/17 04:20 Pulse 85 02/10/17 04:20 Resp 17 02/10/17 06:35 BP 136/62 02/10/17 04:20 Pulse Ox 99 02/10/17 04:20 Intake & Output 02/09/17 02/10/17 02/10/17 18:59 06:59 18:59 Intake Total 540 2937 Output Total 380 1175 Balance 160 1762 Weight 215 lb Intake: IV Fluids 300 1419 LR 300 1419 IVPB 118 LR 118 Oral 240 1400 Output: ANSON #1 30 25 Urine 200 1150 Stewart 150 Other: Estimated Void Small # Bowel Movements 0 Laboratory Results - last 24 hr 02/10/17 02/10/17 06:26 06:26 Hgb 10.0 L Hct 29 L Sodium 133 Potassium 3.9 Chloride 102 Carbon Dioxide 27 Anion Gap 4 BUN 11 Creatinine 0.75 Est GFR ( Amer) 133.6 Est GFR (Non-Af Amer) 103.9 BUN/Creatinine Ratio 14.7 Glucose 120 H Calcium 8.0 L Left knee MONA/dressings are dry and intact ANSON drain currently with a few cc of serosanguenous collection L foot swollen, pink and warm with good cap refill +DF/PF left ankle Assessment: []s/p removal external fixator, ORIF left tibial plateau fracture POD #1 Plan: []PT/OT NWB LLE Take down dressings and remove ANSON drain 02/11 which is sutured in Possible discharge home tomorrow if pain tolerable and has mastered PT/OT goals.
[2017-02-10] MEDS: Vitamin THERAPEUTIC TAB PO SCH (10:30)
[2017-02-10] MEDS: Enoxaparin(*) 40 MG/0.4 ML SYR SUBCUT SCH (10:30)
[2017-02-11] MEDS: oxyCODONE/Acetamin 5/325 MG* TAB PO PRN ×4 (02:31→14:38)
[2017-02-11 07:02] LABS: Hematocrit 28 % (42-52); Hemoglobin 9.8 g/dl (14.0-18.0)
[2017-02-11] MEDS: Enoxaparin(*) 40 MG/0.4 ML SYR SUBCUT SCH (07:40)
[2017-02-11] MEDS: Vitamin THERAPEUTIC TAB PO SCH (07:41)
[2017-02-11] MEDS: ceFAZolin 1 GM VIAL(*) 1 GM in NS 0.9% 50 ML* 50 ML IVPB SCH (07:42)
--- NOTE | 2017-02-11 08:22 | PN ---
Progress Note - Progress Note Date of Service: 02/11/17 SOAP: Subjective: 66 y/o male s/p ORIF L tib plat fx, ext fixator LLE hardward removal, meniscal repaeir L, L patellar tendon repair by Dr. Wiggins 02/09/2017, s/p ext fixation of lat plat fx. Patient working with PT, transferring well. VSS, afebrile overnight. Objective: General- Well appearing, NAD, resting comfortably in bed MSK- SUrgical dressing intact, drain removed by Dr. Guerin this AM. no bleeding noted, + DF/PF, neg homans, sensation grossly intact b/l LEs NE 2+ b/l + moderate edema L LE Laboratory Results - last 24 hr 02/11/17 06:43 Hgb 9.8 L Hct 28 L Vital Signs Temp 98.8 F 02/11/17 11:19 Pulse 95 02/11/17 11:19 Resp 16 02/11/17 11:19 BP 128/59 02/11/17 11:19 Pulse Ox 99 02/11/17 11:19 Intake & Output 02/10/17 02/11/17 02/11/17 18:59 06:59 18:59 Intake Total 3302 1200 325 Output Total 1215 1355 570 Balance 2087 -155 -245 Intake: IV Fluids 367 LR 367 IVPB 55 LR 55 Oral 2880 1200 325 Output: ANSON #1 15 5 Urine 1200 1350 570 Other: # Bowel Movements 0 0 # Voids 2 Assessment: Stable 66 y/o male s/p ORIF L tib plat fx, ext fixator LLE hardward removal, meniscal repaeir L, L patellar tendon repair by Dr. Wiggins 02/09/2017, s/p ext fixation 01/29 of lat plat fx. Plan: - DVT prophyl- lovenox, ASA outpt. - Continue ancef for possible infection noted at ext fixation site pre-op. Discuss ABX tx with Dr. Guerin - LIkely D/C to home after PT clears this PM, awaiting work comp insurance clearance for VNS, PT. - Follow up with Dr Guerin within 10 days Active Medications Generic Name Dose Route Start Last Admin Trade Name Freq PRN Reason Stop Dose Admin Bisacodyl 10 mg 02/09/17 13:44 Dulcolax Supp* NE DAILY PRN constipation Diphenhydramine HCl 25 mg 02/09/17 13:44 Benadryl Iv* IV Q6H PRN itching or insomnia Enoxaparin Sodium 40 mg 02/10/17 09:00 02/11/17 07:40 Lovenox(*) SUBCUT 40 mg Q24H RAVI Administration Lactated Ringer's 1,000 mls @ 100 mls/hr 02/09/17 14:00 02/10/17 02:06 Lactated Ringers 1000 Ml Bag* IV 100 mls/hr PER RATE RAVI Administration Lactulose 30 ml 02/09/17 13:44 Lactulose* PO Q6H PRN constipation Morphine Sulfate 2 mg 02/09/17 13:44 02/09/17 16:27 Morphine Inj (Syringe)* IV 2 mg Q30M PRN Administration PAIN - UNCONTROLLED Multivitamins 1 tab 02/10/17 09:00 02/11/17 07:41 Theragran Tab* PO 1 tab DAILY RAVI Administration Oxycodone HCl 10 mg 02/09/17 13:44 02/10/17 03:30 Roxycodone Tab* PO 10 mg Q4H PRN Administration PAIN - SEVERE Oxycodone/Acetaminophen 1 tab 02/09/17 13:44 Percocet 5/325 Tab* PO Q3H PRN PAIN - MODERATE Oxycodone/Acetaminophen 2 tab 02/09/17 13:44 02/11/17 10:52 Percocet 5/325 Tab* PO 2 tab Q4H PRN Administration PAIN - MODERATE TO SEVERE
[2017-02-11 11:39] VITALS: BP 128/59
--- NOTE | 2017-02-12 04:07 | DS ---
DISCHARGE SUMMARY: DATE OF ADMISSION: 02/09/17 DATE OF DISCHARGE: 02/11/17 ATTENDING PHYSICIAN: Lavelle Guerin MD * (DICTATED BY CORRINA MCGOWAN) CHIEF COMPLAINT: Left tibial plateau fracture. DISCHARGE DIAGNOSIS: Status post ORIF, left tibial plateau fracture with removal of external fixator and open lateral meniscus and patellar tendon repair , left thigh, 02/09/17. PROCEDURE: ORIF, left tibial plateau fracture, lateral, displaced with removal of external fixator and repair of open lateral meniscectomy as well as open left patellar tendon repair. CONSULTATIONS: 1. Physical Therapy. 2. Occupational Therapy. BRIEF HISTORY: Mr. Scanlon is a very pleasant 66-year-old gentleman who fell in a ditch at work on 01/28/17 and was found to have a tibial plateau fracture; however, due to significant swelling, an immediate open reduction internal fixation was not possible. The patient was treated with external fixation until 02/09/17 when it was deemed safe to proceed with the ORIF. HOSPITAL COURSE: Mr. Scanlon was changed from a swing bed status to a full bed status at [facility] and on 02/09/17, underwent an open reduction internal fixation of the left tibial plateau fracture with removal of the external fixator as well as an open lateral meniscus repair and open left patellar tendon repair all in the left lower extremity. Postoperatively, he recovered in the surgical short-stay unit. On postoperative day 1, his Stewart was removed. He was voiding on his own without difficulty. He advanced to regular diet and his pain was controlled with p.o. Percocet. He was restarted on his home medications. His labs and vital signs remained stable. He was nonweightbearing on the left lower extremity with a knee immobilizer in locked position. He advanced appropriately with physical therapy and occupational therapy. His DVT prophylaxis was managed with Lovenox. By postoperative day 2 , he was orthopedically and medically stable for discharge to go home with [facility] home services and physical therapy. PHYSICAL EXAMINATION: General: Well appearing, in no acute distress. Alert and oriented. Resting in bed comfortably. Vital Signs: 98.8 temperature, pulse 95, respirations 16, blood pressure 128/59, pulse oxygenation 99% on room air. Surgical dressing was intact on the left lower extremity. The previous drain had been removed by Dr. Guerin without any sequelae and no bleeding was noted at the site. Positive dorsiflexion and plantarflexion bilaterally with negative Homans' sign bilaterally. Sensation grossly intact, bilateral lower extremities. Posterior tibial pulses are 2+ bilaterally with [id number]-rtcydzpi edema noted over the left lower extremity. LABORATORY DATA: Done on date of discharge with hemoglobin and hematocrit of 9.8 and 28. DISCHARGE MEDICATIONS: 1. Lovenox 40 mg subcu q.24 hours x30 days. 2. Oxycodone 5 to 10 mg p.o. q.4 hours p.r.n. for pain. 3. Cephalexin 500 mg p.o. t.i.d. x7 days. CONDITION ON DISCHARGE: Stable. DISCHARGE INSTRUCTIONS: Mr. Scanlon is a very pleasant 66-year-old gentleman postoperative day 2, status post ORIF of the left lateral tibial plateau, which was uncomplicated. He is orthopedically and medically for discharge to go home with home services. His labs and vital signs were stable. He will restart his home medication and will take Lovenox at 40 mg subcu daily for DVT prophylaxis. He will be followed by [facility] and has PT at home. The patient was educated not to flex greater than 90 degrees and to only have passive range of motion at the knee with physical therapy. He is to be nonweightbearing in his left lower extremity. He will take Colace up to 3 times a day for constipation and will continue to use oxycodone as needed for pain control. He was instructed to go immediately to the ER should he develop chest pain or shortness of breath. Should he develop fever or increasing pain or redness, he is to call the office immediately. CORRINA MCGOWAN [id number] #: [id number] MANAS
== END 2017-02-11 18:15 | disposition home health service (06) | DRG 313 ==
LOC: AA 07:30 → SSU 13:44
PROVIDERS: ADMIT Orthopaedic Surgery; ATTEND Orthopaedic Surgery
PROC: 0SQD0ZZ Repair Left Knee Joint, Open Approach (ICD-10-PCS; 2017-02-09)
PROC: 0QPHX5Z Removal of External Fixation Device from Left Tibia, External Approach (ICD-10-PCS; 2017-02-09)
PROC: 0QUH0JZ Supplement Left Tibia with Synthetic Substitute, Open Approach (ICD-10-PCS; 2017-02-09)
PROC: 0LQR0ZZ Repair Left Knee Tendon, Open Approach (ICD-10-PCS; 2017-02-09)
PROC: 0QSH04Z Reposition Left Tibia with Internal Fixation Device, Open Approach (ICD-10-PCS; principal; 2017-02-09 07:30)
DX: S82.142A Displaced bicondylar fracture of left tibia, initial encounter for closed fracture (principal); S83.252A Bucket-handle tear of lateral meniscus, current injury, left knee, initial encounter; W17.89XA Other fall from one level to another, initial encounter; Z87.891 Personal history of nicotine dependence; Y92.89 Other specified places as the place of occurrence of the external cause; Y99.8 Other external cause status
CPT/HCPCS: 36415; 76001; 80048; 85014; 85018; 94760; A9270-GY; C1713; C1776; C9359; J0690; J1650; J2270